=== PATIENT | male | born 1990 | race African-American/Black ===

== ENCOUNTER 2018-01-25 16:54 | Emergency (ER) | payer OTHER ==
[~2018-01-25] VITALS: Ht 175.3 cm; Wt 103.0 kg
[~2018-01-25 16:54] MED LIST: IBUP-1050 PO; NAPR-1169 PO
[2018-01-25 16:56] VITALS: BP 142/84; PULSE 64; TEMP 36.8; O2SAT 100; Ht 175.3 cm; Wt 103.0 kg
[2018-01-25] MEDS ORDERED: PENI-82 PO (17:09)
[2018-01-25] MEDS ORDERED: PENICILLIN HOME PACK 500MG (4 DOSES)BTL PO ONE (17:15)
--- NOTE | 2018-01-25 22:21 | EMERGENCY ROOM VISIT NOTE ---
ED Visit Note First contact with patient: 17:01 CHIEF COMPLAINT: Toothache HISTORY OF PRESENT ILLNESS: This 27-year-old male patient presented to the emergency department with a progressive toothache for past 3-4 days. The patient believes it is coming from a left upper molar. The pain is now steady and severe and radiates to the face. The patient does not have a dentist appointment set up. They rate their pain a 9/10 and the ibuprofen and Tylenol they have been taking has not relieved the pain. Denies facial swelling or fever. The patient denies any discharge from the mouth. The patient has been seen multiple times in the past with this complaint. REVIEW OF SYSTEMS: A 6 system review of systems was completed with positives and pertinent negatives listed in the HPI. ALLERGIES: Toradol, Aleve, tramadol MEDICATIONS: No chronic medication PMH: Otherwise reportedly healthy SOCIAL HISTORY: Lives locally PHYSICAL EXAM: Vitals are noted on the nurse's note and reviewed by myself. Vital signs stable. GENERAL: Black male, in no acute distress, nondiaphoretic, well-developed well- nourished. Mouth: The left upper first molar tooth is very carious and the gum is swollen and tender around it, without any discharge or signs of an abscess. The remainder of the pharynx and tonsils are without erythema, edema, or exudate. The airway is patent. There is no facial swelling, cervical or submandibular lymphadenopathy. The patient appears uncomfortable and in pain. The patient has overall fair dental hygiene. EARS: External auditory canals clear, tympanic membranes pearly griffith without erythema or effusion bilaterally. HEART: Regular rate and rhythm without murmur gallop or rub LUNG: Clear to auscultation bilateral ED COURSE: Physical exam and history were performed. Nursing notes and EMR were reviewed. The patient is complaining of dental pain for the past few days. He does not have a dental appointment set up at this time. The patient will be given a course of Pen-Vee K with instructions to follow with a dentist for definitive care. He was otherwise invited back to the ER with any new, worsening, or concerning symptoms. Current/Historical Medications Scheduled Penicillin V Potassium (Veetids), 500 MG PO QID Allergies Coded Allergies: Tramadol (Verified Allergy, Intermediate, MIGRAINES, 01/25/18) Ketorolac Tromethamine (Verified Allergy, Unknown, headache, 01/25/18) Naproxen (Verified Allergy, Unknown, rash, 01/25/18) Vital Signs Date Time Temp Pulse Resp B/P (MAP) Pulse Ox O2 Delivery O2 Flow Rate FiO2 01/25/18 16:56 36.8 64 20 142/84 100 Room Air Medications Administered Medications (Trade) Dose Ordered Sig/Paola Route Start Time Stop Time Status Last Admin Dose Admin Penicillin V Potassium (Pen-Vk 500MG Home Pack) 1 homepack UD ONCE PO 01/25/18 17:15 01/25/18 17:16 DC 01/25/18 17:15 1 HOMEPACK Departure Information Impression Primary Impression: Pain, dental Dispostion Home / Self-Care Condition GOOD Prescriptions Penicillin V Potassium (Veetids) 500 Mg Tab 500 MG PO QID, #40 TAB Prov: Matthew Cassidy PA-C 01/25/18 Forms HOME CARE DOCUMENTATION FORM, IMPORTANT VISIT INFORMATION Patient Instructions My [facility] Additional Instructions You were seen and evaluated today on an emergency basis only. This is not a substitute for, or an effort to provide, complete comprehensive medical care. It is not possible to recognize and treat all injuries or illnesses in a single emergency department visit. For this reason it is recommended that you followup with a dentist as soon as possible for definitive care. Take Pen-Vee K 500 mg 4 times daily for the next 10 days. Continue [id number] Tylenol and Orajel. You are welcome to return to the emergency department anytime with new, worsening, or concerning symptoms.
== END 2018-01-25 17:21 | disposition home or self-care (01) ==
LOC: C.EDB 16:56 → C.EDD 17:21
DX: K08.89 Other specified disorders of teeth and supporting structures (principal); Z88.6 Allergy status to analgesic agent

== ENCOUNTER 2018-02-22 10:12 | Emergency (ER) | payer OTHER ==
[~2018-02-22] VITALS: Ht 175.3 cm; Wt 97.4 kg
[~2018-02-22 10:12] MED LIST changes: -IBUP-1050 PO; -NAPR-1169 PO; +PENI-82 PO
[2018-02-22 10:28] VITALS: BP 148/80; PULSE 64; TEMP 37.2; O2SAT 100; Ht 175.3 cm; Wt 97.4 kg
--- NOTE | 2018-02-22 10:40 | EMERGENCY ROOM VISIT NOTE ---
History Report prepared by Kianna: Mayra Minor Under the Supervision of: Dr. John Braga M.D. First contact with patient: 10:34 Chief Complaint: DENTAL PAIN Stated Complaint: TOOTHACHE Nursing Triage Summary: Pt has had bilateral posterior dental pain upper and lower for a few weeks, worsening. Has not been able to make appt with dentist. Pain 10/10. 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 He has bilateral posterior dental pain in his upper and lower teeth. He states it is worsening and rates his pain as a 10/10 in severity. No fevers, no chills, no vomiting, no drainage in his mouth. No recent dental work. 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 A total of ten systems were reviewed and were otherwise negative. Past Medical & Surgical Medical Problems: (1) No significant past medical history Family History Diabetes mellitus Heart disease Hypertension Social History Smoking Status: Former Smoker Alcohol Use: none Drug Use: none Marital Status: in relationship Housing Status: lives with family Occupation Status: employed Current/Historical Medications Scheduled Penicillin V Potassium (Veetids), 500 MG PO QID Penicillin V Potassium (Veetids), 500 MG PO QID Allergies Coded Allergies: Tramadol (Verified Allergy, Intermediate, MIGRAINES, 01/25/18) Ketorolac Tromethamine (Verified Allergy, Unknown, headache, 01/25/18) Naproxen (Verified Allergy, Unknown, rash, 01/25/18) Physical Exam Vital Signs Date Time Temp Pulse Resp B/P (MAP) Pulse Ox O2 Delivery O2 Flow Rate FiO2 02/22/18 10:28 37.2 64 22 148/80 100 Room Air Physical Exam Physical Exam GENERAL: He is oriented to person, place, and time. He appears well-developed and well-nourished. He does not appear distressed. ____ HENT: Exam performed. Head: Normocephalic and atraumatic. Right Ear: External ear normal. No mastoid tenderness. Left Ear: External ear normal. No mastoid tenderness. Mouth/Throat: The oropharynx is clear and moist. No trismus in the jaw. No uvula swelling. No oropharyngeal exudate or tonsillar abscesses. Multiple dental caries. No obvious dental abscess .No tongue elevation. No sublingual or submental swelling. EYES: Conjunctivae and EOM are normal. Pupils are equal, round, and reactive to light. Right eye exhibits no discharge. Left eye exhibits no discharge. No scleral icterus. ____ NECK: Normal range of motion. Neck supple. No JVD present. No spinous process tenderness present. No carotid bruit present. No rigidity. No tracheal deviation and normal range of motion present. No Brudzinski's sign and no Kernig 's sign noted. ____ CV: Normal rate, regular rhythm, normal heart sounds and intact distal pulses. There is no peripheral edema. Palpable radial pulses bue. ____ PULM/CHEST: Effort normal and breath sounds normal. No respiratory distress. No stridor. He has no wheezes. He has no rales. Chest Wall: He exhibits no tenderness. ____ ABD: The abdomen is soft. Bowel sounds are normal. He has no distension. No mass is present. There is no tenderness. There is no rebound, no guarding, no Vu's sign and no tenderness at McBurney's point. Rovsig negative MUSC/SKEL: Normal range of motion. There is no peripheral edema, tenderness or deformity. LYMPH: No cervical adenopathy. ____ NEURO: He is alert and oriented to person, place, and time. He has normal strength. No cranial nerve deficit or sensory deficit. Coordination and gait normal. GCS eye subscore is 4. GCS verbal subscore is 5. GCS motor subscore is 6. Cerebellar tests wnl. ____ SKIN: Skin is warm and dry. He is not diaphoretic. ____ PSYCH: He has a normal mood and affect. His behavior is normal. Judgment and thought content normal. ____ Medical Decision & Procedures ED Course 1036: The patient was evaluated in room A10. A complete history and physical exam was performed. Vital signs stable. Discharge with antibiotics and follow- up dentistry. DISCHARGE - Plan of care discussed with patient and questions answered. The patient was given both verbal and printed discharge instructions. The patient verbalized understanding and ability to comply. The patient is to seek outpatient follow up as noted in the discharge instructions. The patient verbalized understanding and ability to comply. The patient is discharged in stable condition. The patient was instructed to return for worsening symptoms. Medical Decision The patient was evaluated in room A10. A complete history and physical exam was performed. Vital signs stable. Discharge with antibiotics and follow-up dentistry. DISCHARGE - Plan of care discussed with patient and questions answered. The patient was given both verbal and printed discharge instructions. The patient verbalized understanding and ability to comply. The patient is to seek outpatient follow up as noted in the discharge instructions. The patient verbalized understanding and ability to comply. The patient is discharged in stable condition. The patient was instructed to return for worsening symptoms. Medication Reconcilliation Current Medication List: was personally reviewed by me Blood Pressure Screening Patient's blood pressure: Elevated blood pressure Blood pressure disposition: Elevated BP felt to be situational Impression Primary Impression: Pain, dental Scribe Attestation The scribe's documentation has been prepared under my direction and personally reviewed by me in its entirety. I confirm that the note above accurately reflects all work, treatment, procedures, and medical decision making performed by me. The chart was completed utilizing [employer] Speech voice recognition software. Grammatical errors, random word insertions, pronoun errors, and incomplete sentences are an occasional consequence of this system due to software limitations, ambient noise, and hardware issues. Any formal questions or concerns about the content, text, or information contained within the body of this dictation should be directly addressed to the physician for clarification. Departure Information Dispostion Home / Self-Care Prescriptions Penicillin V Potassium (Veetids) 500 Mg Tab 500 MG PO QID, #40 TAB Prov: John Braga M.D. 02/22/18 Referrals No Doctor, Assigned (PCP) Forms HOME CARE DOCUMENTATION FORM, IMPORTANT VISIT INFORMATION Patient Instructions My [facility]
[2018-02-22] MEDS ORDERED: PENI-82 PO ×2 (11:00→11:08)
== END 2018-02-22 11:00 | disposition home or self-care (01) ==
LOC: C.EDB 10:14
DX: K08.89 Other specified disorders of teeth and supporting structures (principal); K02.9 Dental caries, unspecified; Z87.891 Personal history of nicotine dependence; Z88.5 Allergy status to narcotic agent; Z88.6 Allergy status to analgesic agent